=== PATIENT | female | born 1970 | race Hispanic/Latino ===

== ENCOUNTER → 2022-03-24 | Outpatient (CLI) | payer SELFPAY | END | disposition home or self-care (01) | LOC: OIH 08:08 | PROVIDERS: ATTEND Student in an Organized Health Care Education/Training Program | DX: I44.7 Left bundle-branch block, unspecified (principal); R07.9 Chest pain, unspecified | CPT/HCPCS: 93306 ==

== ENCOUNTER → 2022-04-14 | Outpatient (CLI) | payer SELFPAY ==
[2022-04-14 12:38] LABS: ALBUMIN 3.8 g/dL (3.5-5.0); CREATININE 0.9 mg/dL (0.5-1.5); POTASSIUM 4.4 mmol/L (3.5-5.1); TOTAL PROTEIN, SERUM 8.4 g/dL (6.0-8.3)
== END | disposition home or self-care (01) ==
LOC: LAB 10:06
PROVIDERS: ATTEND Student in an Organized Health Care Education/Training Program
DX: R07.9 Chest pain, unspecified (principal); I44.7 Left bundle-branch block, unspecified
CPT/HCPCS: 36415; 80053

== ENCOUNTER → 2022-05-03 | Outpatient (CLI) | payer SELFPAY ==
[~2022-05-03] MED LIST: IOHEXOL 350 MG/ML 100ML INFUS..BTL IV ONE
== END | disposition home or self-care (01) ==
LOC: RAH 09:43
PROVIDERS: ATTEND Student in an Organized Health Care Education/Training Program
DX: R07.9 Chest pain, unspecified (principal)
CPT/HCPCS: 75574; Q9967